=== PATIENT | female | born 1980 | race Caucasian/White ===

== ENCOUNTER 2021-03-13 12:32 | Emergency (ER) | payer OTHER ==
[~2021-03-13] VITALS: Ht 160 cm; Wt 72.6 kg
[2021-03-13] MEDS ORDERED: PROAIR HFA8.5 GM INH (12:49)
[2021-03-13 14:02] VITALS: BP 118/72
== END 2021-03-13 14:02 | disposition home or self-care (01) ==
LOC: M.ERS 12:32
DX: S93.401A Sprain of unspecified ligament of right ankle, initial encounter (principal); F12.90 Cannabis use, unspecified, uncomplicated; J45.909 Unspecified asthma, uncomplicated; Z88.0 Allergy status to penicillin; X50.1XXA Overexertion from prolonged static or awkward postures, initial encounter; Y93.89 Activity, other specified; Y92.89 Other specified places as the place of occurrence of the external cause; Y99.9 Unspecified external cause status